=== PATIENT | female | born 1965 | race Caucasian/White ===

== ENCOUNTER → 2018-05-19 | Outpatient (CLI) | payer BC | LOC: MC.RAD 10:15 | DX: Z12.31 Encounter for screening mammogram for malignant neoplasm of breast (principal); N64.89 Other specified disorders of breast ==

== ENCOUNTER → 2018-06-15 | Outpatient (CLI) | payer BC | LOC: MC.RAD 08:15 | DX: N63.10 Unspecified lump in the right breast, unspecified quadrant (principal) ==